=== PATIENT | female | born 1995 | race Caucasian/White ===

== ENCOUNTER 2021-05-07 06:58 | Inpatient (IN) | payer MEDICAID ==
[2021-05-06 14:08] LABS: BASOPHILS % (AUTO) 0.4 % (0-1); EOSINOPHILS # (AUTO) 0.1 X10'3 (0-0.9); EOSINOPHILS % (AUTO) 0.7 % (0-6); LYMPHOCYTES # (AUTO) 2.9 X10'3 (1.1-4.8); LYMPHOCYTES % (AUTO) 27.6 % (21-51); MEAN CORPUSCULAR HEMOGLOBIN 25.5 PG (27.0-31.0); MEAN CORPUSCULAR HGB CONC 32.6 g/dL (33.0-36.5); MEAN CORPUSCULAR VOLUME 78.2 FL (78-98); MEAN PLATELET VOLUME 8.1 FL (7.4-10.4); MONOCYTES % (AUTO) 9.8 % (2-12); NEUTROPHILS # (AUTO) 6.4 X10'3 (1.8-7.7); NEUTROPHILS % (AUTO) 61.5 % (42-75); PRE OP HEMATOCRIT 41.6 % (35.0-45.0); PRE OP HEMOGLOBIN 13.6 g/dL (12.0-16.0); PRE OP PLATELET COUNT 374 X10'3 (140-440); RED BLOOD COUNT 5.32 X10'6 (4.20-5.60); RED CELL DISTRIBUTION WIDTH 14.4 % (11.5-14.5)
[2021-05-06 14:18] LABS: ALBUMIN 3.9 G/DL (3.4-5.0); ALKALINE PHOSPHATASE 61 IU/L (46-116); BLOOD UREA NITROGEN 9 MG/DL (7-18); BUN/CREATININE RATIO 11.3 (6.6-38.0); CALCIUM 8.8 MG/DL (8.5-10.1); CHLORIDE 107 MMOL/L (99-107); PRE OP ALT 30 U/L (30-65); PRE OP ANION GAP 9 (8-16); PRE OP AST 13 U/L (10-37); PRE OP BILIRUB, TOTAL 0.3 MG/DL (0.0-1.0); PRE OP GLUCOSE 96 MG/DL (70-104); PRE OP POTASSIUM 3.9 MMOL/L (3.4-5.1); PRE OP SODIUM 142 MMOL/L (135-145); TOTAL CARBON DIOXIDE 25.7 MMOL/L (24-32); TOTAL PROTEIN 7.7 G/DL (6.4-8.2); eGFR 88 ML/MIN
[2021-05-06 14:28] LABS: HCG SERUM QL NEGATIVE
[2021-05-07] VITALS (33 sets, daily range): BP systolic 97–136; BP diastolic 58–82
[~2021-05-07] VITALS: Ht 167.6 cm; Wt 108.9 kg
[~2021-05-07 06:58] MED LIST: ACET-1025 PO; famotidine 20mg tablet PO ONE; levoFLOXACIN-Levaquin 500mg/D5 100 ML IV ONE; ringers solution, lacted 1,000 ML IV SCH; vancomycin 1,500 MG in NS 300ml IV soln IV ONE
[2021-05-07] MEDS ORDERED: midazolam 1 mg/ML 2ml injection ONE (09:46)
[2021-05-07] MEDS ORDERED: fentaNYL /PF 50mcg/ml 5ml ampule ONE (09:46)
[2021-05-07] MEDS ORDERED: ondansetron/PF 4mg/2ml inj ONE (09:48)
[2021-05-07] MEDS ORDERED: propofol inj 20 ML IV ONE (09:48)
[2021-05-07] MEDS ORDERED: LIDOcaine 2% (20mg/ml) 5ml vial ONE (09:48)
[2021-05-07] MEDS ORDERED: dexamethasone sod phosphate 4mg/ml inj. ONE (09:48)
[2021-05-07] MEDS ORDERED: sevoflurane 250ml liquid IH ONE (09:55)
[2021-05-07] MEDS ORDERED: ketorolac trometh. 30mg/ml inj. ONE (09:55)
[2021-05-07] MEDS ORDERED: ketamine 50mg/5ml syringe ONE (10:06)
[2021-05-07] MEDS ORDERED: triamcinolone acetonide 40mg/ml inj ONE (10:22)
[2021-05-07] MEDS ORDERED: acetaminophen 1,000mg/100ml IV 100 ML IV ONE (10:41)
[2021-05-07] MEDS ORDERED: ondansetron/PF 4mg/2ml inj IV PRN ×2 (10:45→19:55)
[2021-05-07] MEDS ORDERED: morphine 2 MG/ML inj. syringe IV PRN (10:45)
[2021-05-07] MEDS ORDERED: meperidine/PF 25mg/ml syringe IV PRN (10:45)
[2021-05-07] MEDS ORDERED: morphine 4 MG/ML inj SYRINge IV PRN (10:45)
[2021-05-07] MEDS ORDERED: ringers solution, lacted 1,000 ML IV SCH (10:45)
[2021-05-07] MEDS ORDERED: morphine 4 MG/ML inj SYRINge ONE (11:39)
[2021-05-07] MEDS ORDERED: BUPIVAcaine 0.5% inj/PF 30 ML ONE (12:32)
--- NOTE | 2021-05-07 12:42 | NUR ---
Received from OR via , accompanied by Anesthesiologist DR WALSH and report given by Anesthesiolgist. AWAKENS TO VOICE. VITALS STABLE. DRESSING DI. CANDIDA PAIN. BLEDSO BRACE SET AT 15 DEGREES LOCKED. TOES WARM AND PINK.
[2021-05-07] MEDS: meperidine/PF 25mg/ml syringe IV PRN ×3 (13:53→20:06)
[2021-05-07] MEDS ORDERED: HYDROmorphone/PF 0.2 MG/ML SYRINGE IV PRN ×2 (14:45)
[2021-05-07] MEDS ORDERED: ondansetron/PF 4mg/2ml inj IV ONE (15:00)
[2021-05-07] MEDS ORDERED: oxyCODONE/APAP 10/325mg tablet PO PRN ×2 (15:00)
--- NOTE | 2021-05-07 16:42 | NUR ---
Report called to receiving nurse. Transferred via [facility] . Special Issues communicated to receiving nurse.AWAKE AND ORIENTED. VITALS STABLE. DRESSING DI. STATES PAIN IMPROVED. TO GUIDE DOG TRAINER 355A AT THIS TIME.
--- NOTE | 2021-05-07 18:05 | NUR ---
Problems reprioritized. Patient report given, questions answered & plan of care reviewed with JAI Cornell.
--- NOTE | 2021-05-07 18:30 | NUR ---
Patient in room [facility]. I have received report from LOLI VERGARA and had the opportunity to ask questions and assume patient care.
[2021-05-07] MEDS ORDERED: HYDROcodone/acetaminophen 10/325mg tab PO PRN (19:55)
[2021-05-07] MEDS: ringers solution, lacted 1,000 ML IV SCH (20:07)
[2021-05-07] MEDS: ketorolac trometh. 30mg/ml inj. IV SCH (20:22)
[2021-05-08 00:01] VITALS: BP 118/70
[2021-05-08] MEDS: ketorolac trometh. 30mg/ml inj. IV SCH ×2 (02:54→09:33)
[2021-05-08] MEDS: ringers solution, lacted 1,000 ML IV SCH (05:33)
[2021-05-08] MEDS: HYDROcodone/acetaminophen 10/325mg tab PO PRN ×2 (05:35→11:55)
--- NOTE | 2021-05-08 06:22 | NUR ---
Problems reprioritized. Patient report given, questions answered & plan of care reviewed with DANIELLE VERGARA.
--- NOTE | 2021-05-08 06:44 | NUR ---
Patient in room [facility]. I have received report from JAI Elena and had the opportunity to ask questions and assume patient care.
[2021-05-08 08:00] VITALS: BP 104/61
[2021-05-08 11:00] VITALS: BP 100/50
--- NOTE | 2021-05-08 12:10 | NUR ---
Pt discharged to home, with all belongings, in private vehicle, accompanied by grandparents. Discharge instructions and medications reviewed. New prescriptions e-scripted to Rosanna Steven in [place], and prescription for pain medication filled by pt COMMUNICATIONS DESIGNER. Pt states follow up appointment already scheduled. Education provided regarding signs and symptoms of infection, with instructions to notify Dr Gould with any concerns and seek medical attention. FWW provided to patient prior to discharge. Pt escorted to front lobby via wheelchair by primary RN and student RN.
== END 2021-05-08 12:15 | disposition home or self-care (01) | DRG 313 ==
LOC: PAS 06:58 → OBSVTOIN 19:00 → SUR 3N 19:00
PROVIDERS: ADMIT Orthopaedic Surgery; ATTEND Orthopaedic Surgery
PROC: 0QSG04Z Reposition Right Tibia with Internal Fixation Device, Open Approach (ICD-10-PCS; 2021-05-07)
PROC: 0SBC4ZZ Excision of Right Knee Joint, Percutaneous Endoscopic Approach (ICD-10-PCS; 2021-05-07)
PROC: 0SUC0KZ Supplement Right Knee Joint with Nonautologous Tissue Substitute, Open Approach (ICD-10-PCS; 2021-05-07)
PROC: 0SBC4ZZ Excision of Right Knee Joint, Percutaneous Endoscopic Approach (ICD-10-PCS; principal; 2021-05-07 09:55)
DX: M22.41 Chondromalacia patellae, right knee (principal); E28.2 Polycystic ovarian syndrome; E66.01 Morbid (severe) obesity due to excess calories; K21.9 Gastro-esophageal reflux disease without esophagitis; S83.241A Other tear of medial meniscus, current injury, right knee, initial encounter; S83.281A Other tear of lateral meniscus, current injury, right knee, initial encounter; X58.XXXA Exposure to other specified factors, initial encounter; M22.42 Chondromalacia patellae, left knee; M22.8X2 Other disorders of patella, left knee; M22.8X1 Other disorders of patella, right knee; S83.011A Lateral subluxation of right patella, initial encounter; Z20.822 Contact with and (suspected) exposure to COVID-19; Z88.0 Allergy status to penicillin; Z88.8 Allergy status to other drugs, medicaments and biological substances; Z68.38 Body mass index [BMI] 38.0-38.9, adult; Y93.89 Activity, other specified; Y92.89 Other specified places as the place of occurrence of the external cause; Y99.8 Other external cause status
CPT/HCPCS: 36415; 73590; 76000; 80053; 82948; 84703; 85025; 87635; 97110; 97116; 97161; 97530; A4215; A4618; A6250; A6449; A7000; C1713; C9803; G0378; J0131; J1100; J1170; J1885; J1956; J2175; J2250; J2270; J2405; J2704; J3010; J3301; J3370; J3490; J7040; J7120; L1832; S0020